=== PATIENT | female | born 1960 | race Caucasian/White ===

== ENCOUNTER 2016-08-31 09:33 | Emergency (ER) | payer MEDICAID ==
[~2016-08-31] VITALS: Ht 165.1 cm; Wt 74.5 kg
[2016-08-31] MEDS ORDERED: SODIUM CHLORIDE FLUSH 10 ML SYR IV PRN (10:25)
[2016-08-31 10:30] LABS: GLUCOSE, URINE (UA) Negative (Negative); LEUKOCYTE ESTERASE ,URINE Negative (Negative); UROBILINOGEN,URINE 0.2 mg/dL (0.2-1.0)
[2016-08-31 10:42] LABS: MEAN CORPUSCULAR HEMOGLOBIN 28.6 PG (26.0-34.0); MEAN CORPUSCULAR HGB CONC 34.1 g/dL (31.0-37.0); MEAN CORPUSCULAR VOLUME 84 FL (80-100); MEAN PLATELET VOLUME 9.8 FL (6.0-9.5); PLATELET COUNT 232 10^3uL (150-450); WHITE BLOOD COUNT 9.41 10^3uL (4.0-11.0)
[2016-08-31 10:54] LABS: ALBUMIN 4.9 g/dL (3.4-5.0); ANION GAP 17.6 MEQ/L (3-15); CALCULATED IONIZED CALCIUM 3.8 mg/dL (3.8-4.6); TOTAL PROTEIN 8.5 g/dL (6.4-8.5)
[2016-08-31 10:56] LABS: BAND NEUTROPHILS % 2 % (0-6); EOSINOPHILS % 0 % (0-4); LYMPHOCYTES # 0.6 #; MONOCYTES # 0.3 #; MONOCYTES % 3 % (3-11); RBC MORPH NORMAL (NORMAL); SEGMENTED NEUTROPHILS % 89 % (51-67); TOTAL CELLS COUNTED 100
[2016-08-31 10:57] LABS: BILIRUBIN,URINE 1+ (Negative); CLARITY,URINE Slightly Cloudy; COLOR,URINE Dark Yellow; RBC,URINE None Seen /HPF; URINE CENTRIFUGED VOLUME 12 mL
[2016-08-31 11:30] VITALS: BP 138/91
== END 2016-08-31 11:30 | disposition home or self-care (01) ==
LOC: EDUNIT# 09:33 → ED 09:35
DX: R10.84 Generalized abdominal pain (principal); M54.5 Low back pain; F17.210 Nicotine dependence, cigarettes, uncomplicated
CPT/HCPCS: 36415; 74176; 80053; 81003; 81015; 83690; 85025; 99283

== ENCOUNTER 2016-09-26 11:26 | Emergency (ER) | payer MEDICAID ==
[~2016-09-26] VITALS: Ht 165.1 cm; Wt 65.0 kg
[2016-09-26 12:54] LABS: MEAN CORPUSCULAR HEMOGLOBIN 28.5 PG (26.0-34.0); MEAN CORPUSCULAR HGB CONC 34.9 g/dL (31.0-37.0); MEAN CORPUSCULAR VOLUME 82 FL (80-100); MEAN PLATELET VOLUME 11.3 FL (6.0-9.5); PLATELET COUNT 517 10^3uL (150-450); WHITE BLOOD COUNT 22.14 10^3uL (4.0-11.0)
[2016-09-26 12:57] LABS: GLUCOSE, URINE (UA) Negative (Negative); LEUKOCYTE ESTERASE ,URINE Negative (Negative); UROBILINOGEN,URINE 0.2 mg/dL (0.2-1.0)
[2016-09-26 13:08] LABS: ALBUMIN 5.1 g/dL (3.4-5.0); ALKALINE PHOSPHATASE 129 U/L (38-126); ANION GAP 29.1 MEQ/L (3-15); BUN/CREATININE RATIO 13 (10-20); CALCULATED IONIZED CALCIUM 4.1 mg/dL (3.8-4.6); TOTAL PROTEIN 8.2 g/dL (6.4-8.5)
[2016-09-26 13:09] LABS: AMPHETAMINE SCREEN, URINE Negative (Negative); BILIRUBIN,URINE 2+ (Negative); CANNABINOID SCREEN, URINE Negative (Negative); CLARITY,URINE Slightly Cloudy; COLOR,URINE Dark Yellow; METHAMPHETAMINE SCREEN URINE S NEGATIVE (NEGATIVE); OPIATE SCREEN URINE Negative (Negative); PROPOXYPHENE STAT NEGATIVE (NEGATIVE)
[2016-09-26 13:16] LABS: URINE CENTRIFUGED VOLUME 12 mL
[2016-09-26 13:17] LABS: AMORPHOUS SEDIMENT,UR 1+ /HPF; RBC,URINE None Seen /HPF
[2016-09-26 13:20] LABS: BAND NEUTROPHILS % 4 % (0-6); EOSINOPHILS % 0 % (0-4); LYMPHOCYTES # 1.1 #; MONOCYTES # 1.8 #; MONOCYTES % 8 % (3-11); SEGMENTED NEUTROPHILS % 82 % (51-67); TOTAL CELLS COUNTED 100
[2016-09-26 13:36] LABS: CREATINE KINASE 2075 U/L (30-135)
[2016-09-26 13:44] LABS: ACETONE SERUM 2+ (Negative)
[2016-09-26 14:07] LABS: RBC MORPH NORMAL (NORMAL)
[2016-09-26] MEDS ORDERED: fentaNYL 100 MCG/2 ML VIAL IV ONE (14:20)
[2016-09-26] MEDS ORDERED: LORazepam 2 MG/ML (ATIVAN) 1 ML VIAL IV ONE (14:20)
[2016-09-26] MEDS ORDERED: NS IV 500 ML 500 ML IV SCH (14:20)
[2016-09-26] MEDS ORDERED: HALOPERIDOL 5 MG/ML (HALDOL) 1 ML AMP IV ONE (15:25)
--- NOTE | 2016-09-26 15:52 | NUR ---
Dr. Shaffer talks to Dr. Tesfaye at [facility].
[2016-09-26 18:14] VITALS: BP 138/62
== END 2016-09-26 16:56 | disposition short-term general hospital (02) ==
LOC: EDUNIT# 11:26 → ED 11:28
DX: R44.1 Visual hallucinations (principal); R94.31 Abnormal electrocardiogram [ECG] [EKG]; N17.9 Acute kidney failure, unspecified; M62.82 Rhabdomyolysis; R56.9 Unspecified convulsions; F15.23 Other stimulant dependence with withdrawal; F19.231 Other psychoactive substance dependence with withdrawal delirium
CPT/HCPCS: 36415; 51701; 70450; 71020; 80053; 81003; 81015; 82009; 82140; 82550; 82553; 82803; 83036; 83605; 83880; 84443; 84484; 85025; 85379; 85610; 86140; 93005; 96374; 96375; 99284; G0478; G0480; J1630; J2060; J3010; J7040; 80307; 80320; 80329; 93010; 99285

== ENCOUNTER → 2016-09-26 | Outpatient (CLI) | payer MEDICAID | LOC: EMS 08:45 | PROVIDERS: ATTEND Family Medicine | DX: R41.82 Altered mental status, unspecified (principal); R53.1 Weakness ==